=== PATIENT | female | born 1950 | race Caucasian/White ===

== ENCOUNTER → 2016-11-11 | Outpatient (CLI) | payer MEDICARE ==
[~2016-11-11] MED LIST: BAYER ASPIRIN325 M1 PO; BUMEX PO; BUMEX1 MG PO; CALCIUM + D 6001 TA1 PO; FISH OIL 1,0001 CAP PO; KEPPRA250 MG PO; LISINOPRIL10 MG PO; SIMVASTATIN10 MG PO; ZOCOR10 MG PO; ZYRTEC10 M1 PO
--- NOTE | ~2016-11-11 | BD1 ---
[facility] A Service of [facility] & [facility] RADIOLOGY TEXT RESULTS PATIENT: SAMEER TANG LOCATION: [facility] : 50 UNIT #: [id number] AGE: [address]: Sujey Gorman MD SEX: F ORDER DR: [id number] [address] [address] [id number] O MR#: [id number] Acc #: [id number] NAME: SAMEER TANG : 1950 SEX: F STUDY DATE/TIME: 11/11/2016 11:08 UNIT: [facility] ROOM: STUDY DESCRIPTION: BD Dexa Bone Dens 1+ Site Attending Physician: Sujey Gorman M.D. Referring Physician: Sujey Gorman M.D. Ordering Physician: Sujey Gorman M.D. Primary Care Physician: Sujey Gorman M.D. MEDICAL IMAGING REPORT This report is preliminary unless electronic signature is present. EXAM Bone densitometry. DATE OF EXAM 11/11/2016 CLINICAL HISTORY 66-year-old postmenopausal female. FINDINGS The bone mineral density of the lumbar spine (L1-L4) is calculated at 1.561 g/cm2. This correlates with a T-score of 3.2 and a Z-score of 12.5. This is considered to be normal bone mineralization. No significant change from the 2007 comparison. The bone mineral density of the left proximal femoral neck region is calculated at 0.903 cm2. This correlates with a T-score of -1 and a Z-score of 0.4. This is considered to be normal bone mineralization. The bone mineral density of the right proximal femoral neck region is calculated at 0.903 g/cm2. This correlates with a T-score of -1 and a Z-score of 0.4. This is classified as normal bone mineralization. IMPRESSION Normal bone mineralization. Dictated by... Heber Nelson M.D. THIS IS AN ELECTRONICALLY VERIFIED REPORT Heber Nelson M.D. at 11/11/2016 4:38 PM [facility] A Service of [facility] & [facility] RADIOLOGY TEXT RESULTS PATIENT: SAMEER TANG [id number] : [birth year] UNIT #: [id number] AGE: [address]: Sujey Gorman MD SEX: F ORDER DR: Adi TD: 11/11/2016 16:09 JOB #: [id number] MEDICAL IMAGING REPORT
--- NOTE | ~2016-11-11 | MY11 ---
[facility] A Service of [facility] RADIOLOGY TEXT RESULTS PATIENT: SAMEER TANG LOCATION: [facility] : 50 UNIT #: [id number] AGE: [address]: Sujey Gorman MD SEX: F ORDER DR: [id number] [address] [address] [id number] O MR#: [id number] Acc #: [id number] NAME: SAMEER TANG : 1950 SEX: F STUDY DATE/TIME: 11/11/2016 10:59 UNIT: [facility] ROOM: STUDY DESCRIPTION: MY Mammogram Screening Dig Jay Attending Physician: Sujey Gorman M.D. Referring Physician: Sujey Gorman M.D. Ordering Physician: Sujey Gorman M.D. Primary Care Physician: Sujey Gorman M.D. MEDICAL IMAGING REPORT This report is preliminary unless electronic signature is present. EXAM Bilateral digital screening mammogram with CAD. DATE OF EXAM 11/11/2016 COMPARISON April 14, 2010, and February 27, 2009, February 20, 2008, February 14, 2007, and October 04, 2005. INDICATIONS Breast cancer screening. 66-year-old asymptomatic female. No personal or family history of breast cancer. FINDINGS There are scattered fibroglandular densities. There are no suspicious findings in the left breast. Adjacent to the stable island of fibroglandular tissue in the 3 o'clock posterior third of the right breast there has been interval development of a rim calcifying oil cyst, confirmed on CC projection. There are no suspicious findings in either breast. IMPRESSION No mammographic evidence of malignancy. Continued annual screen mammography and clinical breast exam are recommended. Patients over the age of 40 are entered into a reminder system with target due date for the next mammogram. A result letter will also be sent to the patient. BIRADS: 2 Benign findings. [facility] A Service of [facility] RADIOLOGY TEXT RESULTS PATIENT: SAMEER TANG LOCATION: [facility] : 50 UNIT #: [id number] AGE: [address]: Sujey Gorman MD SEX: F ORDER DR: Dictated by... Corey Quinones M.D. THIS IS AN ELECTRONICALLY VERIFIED REPORT Corey Quinones M.D. at 11/13/2016 7:10 PM VENKAT/bethel TD: 11/11/2016 22:16 JOB #: [id number] MEDICAL IMAGING REPORT
== END | disposition home or self-care (01) ==
LOC: SMAM 10:25
DX: Z12.31 Encounter for screening mammogram for malignant neoplasm of breast (principal); Z13.820 Encounter for screening for osteoporosis; Z78.0 Asymptomatic menopausal state
CPT/HCPCS: 77080; G0202